=== PATIENT | male | born 1970 | race Native Hawaiian/Other Pacific Islander ===

== ENCOUNTER 2017-05-19 14:31 | Emergency (ER) | payer OTHER ==
[~2017-05-19] VITALS: Ht 172.7 cm; Wt 99.8 kg
[2017-05-19 18:34] VITALS: BP 150/85; TEMP 98.4
== END 2017-05-19 18:34 | disposition home or self-care (01) ==
LOC: ED 14:31
DX: N20.0 Calculus of kidney (principal)
CPT/HCPCS: 81000; 96361; 96374; 96375; 99284; J1885; J2270; J2550